=== PATIENT | male | born 1995 | race Caucasian/White ===

== ENCOUNTER 2016-06-06 20:06 | Emergency (ER) | payer BC, OTHER ==
[~2016-06-06] VITALS: Ht 175.3 cm; Wt 59.7 kg
[~2016-06-06 20:06] MED LIST: BACT5UDC PO; Z.0.NO CURRENT MEDS
[2016-06-06 20:45] VITALS: BP 109/64; PULSE 84; RESP 16; TEMP 98.8; O2SAT 98
--- NOTE | 2016-06-06 20:55 | PD ---
HPI Chief Complaint: Vomiting, diarrhea Time Seen by Provider: 20:28 Travel History International Travel<30 days: No Contact w/Intl Traveler<30days: No History of Present Illness HPI 21yo M with no significant PMH presents to the ED with c/o periumbilical abdominal pain for a few days. States that he would induce vomiting and then he feels better. Pt also had taken laxitive and is now having nonbloody diarrhea. Pt had diarrhea today. Denies any fever, chest pain, sob, testicular pain, penile discharge. Pt states this has happened before and he went to urgent care and had CT scan that showed constipation. Pt currently does not have any abdominal pain. PFSH Past Medical History Diminished Hearing: No Social History Alcohol Use: No Tobacco Use: No Substance Use: No Allergies-Medications (Allergen,Severity, Reaction): Coded Allergies: Penicillin (Verified Allergy, Mild, 04/23/07) Reported Meds & Prescriptions Reported Meds & Active Scripts Active No Active Prescriptions or Reported Medications Review of Systems Except as stated in HPI: all other systems reviewed are Neg Physical Exam Narrative GENERAL: 21yo M not in distress. SKIN: Focused skin assessment warm/dry. HEAD: Atraumatic. Normocephalic. CARDIOVASCULAR: Regular rate and rhythm. No murmur appreciated. RESPIRATORY: No accessory muscle use. Clear to auscultation. Breath sounds equal bilaterally. GASTROINTESTINAL: Abdomen soft, non-tender, nondistended. No rebound tenderness or guarding. MUSCULOSKELETAL: No obvious deformities. No clubbing. No cyanosis. No edema. NEUROLOGICAL: Awake and alert. No obvious cranial nerve deficits. Motor grossly within normal limits. Normal speech. PSYCHIATRIC: Appropriate mood and affect; insight and judgment normal. Data Data Orders Abdomen, Flat & Upright (06/06/16 ) Complete Blood Count With Diff (06/06/16 20:51) Comprehensive Metabolic Panel (06/06/16 20:51) Lipase (06/06/16 20:51) Labs Laboratory Tests Test 06/06/16 21:05 White Blood Count 5.7 TH/MM3 Red Blood Count 4.82 MIL/MM3 Hemoglobin 14.7 GM/DL Hematocrit 42.8 % Mean Corpuscular Volume 88.9 FL Mean Corpuscular Hemoglobin 30.4 PG Mean Corpuscular Hemoglobin 34.2 % Concent Red Cell Distribution Width 12.1 % Platelet Count 217 TH/MM3 Mean Platelet Volume 7.1 FL Neutrophils (%) (Auto) 52.9 % Lymphocytes (%) (Auto) 27.3 % Monocytes (%) (Auto) 18.3 % Eosinophils (%) (Auto) 1.0 % Basophils (%) (Auto) 0.5 % Neutrophils # (Auto) 3.0 TH/MM3 Lymphocytes # (Auto) 1.6 TH/MM3 Monocytes # (Auto) 1.0 TH/MM3 Eosinophils # (Auto) 0.1 TH/MM3 Basophils # (Auto) 0.0 TH/MM3 CBC Comment DIFF FINAL Differential Comment Sodium Level 143 MEQ/L Potassium Level 4.0 MEQ/L Chloride Level 105 MEQ/L Carbon Dioxide Level 30.0 MEQ/L Anion Gap 8 MEQ/L Blood Urea Nitrogen 11 MG/DL Creatinine 0.89 MG/DL Estimat Glomerular Filtration 109 ML/MIN Rate Random Glucose 91 MG/DL Calcium Level 8.9 MG/DL Total Bilirubin 1.8 MG/DL Aspartate Amino Transf 24 U/L (AST/SGOT) Alanine Aminotransferase 27 U/L (ALT/SGPT) Alkaline Phosphatase 46 U/L Total Protein 7.2 GM/DL Albumin 4.0 GM/DL Lipase 166 U/L [facility] Medical Decision Making Medical Screen Exam Complete: Yes Emergency Medical Condition: Yes Interpretation(s) Laboratory Tests Test 06/06/16 21:05 White Blood Count 5.7 TH/MM3 (4.0-11.0) Red Blood Count 4.82 MIL/MM3 (4.50-5.90) Hemoglobin 14.7 GM/DL (13.0-17.0) Hematocrit 42.8 % (39.0-51.0) Mean Corpuscular Volume 88.9 FL (80.0-100.0) Mean Corpuscular Hemoglobin 30.4 PG (27.0-34.0) Mean Corpuscular Hemoglobin 34.2 % Concent (32.0-36.0) Red Cell Distribution Width 12.1 % (11.6-17.2) Platelet Count 217 TH/MM3 (150-450) Mean Platelet Volume 7.1 FL (7.0-11.0) Neutrophils (%) (Auto) 52.9 % (16.0-70.0) Lymphocytes (%) (Auto) 27.3 % (9.0-44.0) Monocytes (%) (Auto) 18.3 % (0.0-8.0) Eosinophils (%) (Auto) 1.0 % (0.0-4.0) Basophils (%) (Auto) 0.5 % (0.0-2.0) Neutrophils # (Auto) 3.0 TH/MM3 (1.8-7.7) Lymphocytes # (Auto) 1.6 TH/MM3 (1.0-4.8) Monocytes # (Auto) 1.0 TH/MM3 (0-0.9) Eosinophils # (Auto) 0.1 TH/MM3 (0-0.4) Basophils # (Auto) 0.0 TH/MM3 (0-0.2) CBC Comment DIFF FINAL Differential Comment Sodium Level 143 MEQ/L (136-145) Potassium Level 4.0 MEQ/L (3.5-5.1) Chloride Level 105 MEQ/L (98-107) Carbon Dioxide Level 30.0 MEQ/L (21.0-32.0) Anion Gap 8 MEQ/L (5-15) Blood Urea Nitrogen 11 MG/DL (7-18) Creatinine 0.89 MG/DL (0.60-1.30) Estimat Glomerular Filtration 109 ML/MIN Rate (>89) Random Glucose 91 MG/DL (74-106) Calcium Level 8.9 MG/DL (8.5-10.1) Total Bilirubin 1.8 MG/DL (0.2-1.0) Aspartate Amino Transf 24 U/L (15-39) (AST/SGOT) Alanine Aminotransferase 27 U/L (9-52) (ALT/SGPT) Alkaline Phosphatase 46 U/L (45-117) Total Protein 7.2 GM/DL (6.4-8.2) Albumin 4.0 GM/DL (3.4-5.0) Lipase 166 U/L (73-393) Last Impressions Abdomen X-Ray 06/06/16 0000 Signed Impressions: Service Date/Time: Monday, June 06, 2016 20:55 - CONCLUSION: Nonspecific abdomen. Kylie Chamorro MD Differential Diagnosis Gastroenteritis vs. pancreatitis vs. partial obstruction vs. anxiety Narrative Course 21yo well appearing male here with vomiting and diarrhea. Abdominal exam is benign. Labs reviewed, no leukocytosis. Bilirubin mildly elevated at 1.8 but no tenderness on exam. Lipase normal. Xray abdomen nonspecific. No obstruction. Return precautions given. Pt tolerating PO. Diagnosis Primary Impression: Gastroenteritis Patient Instructions: General Instructions Departure Forms: Tests/Procedures Additional Instructions: Please follow up with your PMD in 3-7 days. Return to the ED if symptoms worsen. Med/Other Pt SpecificInfo: No Change to Meds Scripts No Active Prescriptions or Reported Meds Disposition: 01 DISCHARGE HOME Condition: Stable Sabrina Polk DO Jun 06, 2016 20:55
[2016-06-06 21:13] LABS: BASOPHIL % 0.5 % (0.0-2.0); EOSINOPHIL # 0.1 TH/MM3 (0-0.4); HEMATOCRIT 42.8 % (39.0-51.0); HEMO FLAGS DIFF FINAL; LYMPH % 27.3 % (9.0-44.0); LYMPHOCYTE # 1.6 TH/MM3 (1.0-4.8); MEAN CELL VOLUME 88.9 FL (80.0-100.0); MEAN CORPUSCULAR HEMOGLOBIN 30.4 PG (27.0-34.0); MEAN CORPUSCULAR HGB CONC 34.2 % (32.0-36.0); MONO % 18.3 % (0.0-8.0); NEUT % 52.9 % (16.0-70.0); PLATELET COUNT 217 TH/MM3 (150-450); RED BLOOD COUNT 4.82 MIL/MM3 (4.50-5.90); RED CELL DISTRIBUTION WIDTH 12.1 % (11.6-17.2); WHITE BLOOD COUNT 5.7 TH/MM3 (4.0-11.0)
--- NOTE | 2016-06-06 21:17 | RADHPO ---
EXAM DATE/TIME: 06/06/2016 20:55 [facility] COMPARISON: No previous studies available for comparison. INDICATIONS : Abdominal pain, vomiting for 4 days. MEDICAL HISTORY : SURGICAL HISTORY : None. ENCOUNTER: Initial ACUITY: 4 - 6 days PAIN SCORE: 5/10 LOCATION: Lower abdomen. FINDINGS: The bowel gas is nonspecific. There are no signs of obstruction or free air for technique. No defini te calcified stones are identified for technique. CONCLUSION: Nonspecific abdomen. Kylie Chamorro MD on June 06, 2016 at 21:14 Board Certified Radiologist. This report was verified electronically.
[2016-06-06 21:25] LABS: CHLORIDE 105 MEQ/L (98-107); SODIUM (NA) 143 MEQ/L (136-145)
[2016-06-06 21:29] LABS: ANION GAP 8 MEQ/L (5-15); BLOOD UREA NITROGEN 11 MG/DL (7-18)
[2016-06-06 21:31] LABS: ALT (GPT) 27 U/L (9-52); AST (GOT) 24 U/L (15-39); GLOMERULAR FILTRATION RATE 109 ML/MIN (>89)
[2016-06-06 21:33] LABS: TOTAL BILIRUBIN ADULT 1.8 MG/DL (0.2-1.0)
[2016-06-06 21:34] LABS: ALKALINE PHOSPHATASE 46 U/L (45-117)
[2016-06-06 22:00] VITALS: BP 108/66; PULSE 81; RESP 16; O2SAT 98
== END 2016-06-06 22:40 | disposition home or self-care (01) ==
LOC: PHED 20:06
DX: K52.9 Noninfective gastroenteritis and colitis, unspecified (principal)
CPT/HCPCS: 74020; 80053; 83690; 85025; 99284